=== PATIENT | female | born 1960 | race Caucasian/White ===

== ENCOUNTER 2018-06-23 13:37 | Emergency (ER) | payer BC ==
[~2018-06-23] VITALS: Ht 172.7 cm; Wt 79.0 kg
[2018-06-23 13:38] VITALS: BP 114/65
[2018-06-23] MEDS ORDERED: normal saline 1000ml 1,000 ML IV ONE (14:11)
[2018-06-23] MEDS ORDERED: LORazepam 2 mg/ml vial IV ONE (14:15)
[2018-06-23 14:57] LABS: BASOPHILS % (AUTO) 0.4 % (0-1); EOSINOPHILS # (AUTO) 0.1 X10'3 (0-0.9); EOSINOPHILS % (AUTO) 1.2 % (0-6); HEMATOCRIT 43.4 % (35.0-45.0); HEMOGLOBIN 14.9 g/dl (12.0-16.0); LYMPHOCYTES # (AUTO) 1.1 X10'3 (1.1-4.8); LYMPHOCYTES % (AUTO) 11.5 % (21-51); MEAN CORPUSCULAR HEMOGLOBIN 32.4 PG (27.0-31.0); MEAN CORPUSCULAR HGB CONC 34.2 g/dL (33.0-36.5); MEAN CORPUSCULAR VOLUME 94.7 FL (78-98); MEAN PLATELET VOLUME 7.4 FL (7.4-10.4); MONOCYTES # (AUTO) 1.1 X10'3 (0-0.9); MONOCYTES % (AUTO) 10.8 % (2-12); NEUTROPHILS # (AUTO) 7.5 X10'3 (1.8-7.7); NEUTROPHILS % (AUTO) 76.1 % (42-75); PLATELET COUNT 171 X10'3 (140-440); RED BLOOD COUNT 4.58 X10'6 (4.20-5.60); RED CELL DISTRIBUTION WIDTH 14.6 % (11.5-14.5); WHITE BLOOD COUNT 9.8 X10'3 (4.5-11.0)
[2018-06-23 15:09] LABS: PARTIAL THROMBOPLASTIN TIME 25 SECONDS (22-32)
[2018-06-23 15:12] LABS: ALANINE AMINOTRANSFERASE 125 U/L (12-78); ALBUMIN 3.8 G/DL (3.4-5.0); ALBUMIN/GLOBULIN RATIO 1.2 (1.1-1.5); ALKALINE PHOSPHATASE 73 IU/L (46-116); ANION GAP 6 (8-16); ASPARTATE AMINO TRANSFERASE 80 U/L (10-37); BILIRUBIN,TOTAL 0.4 MG/DL (0.1-1.0); BLOOD UREA NITROGEN 14 MG/DL (7-18); BUN/CREATININE RATIO 16.7 (6.6-38.0); CALCIUM 8.9 MG/DL (8.5-10.1); CHLORIDE 103 MMOL/L (99-107); CREATININE 0.84 MG/DL (0.40-0.90); GLUCOSE 100 MG/DL (70-104); POTASSIUM 3.8 MMOL/L (3.5-5.1); SODIUM 137 MMOL/L (135-145); TOTAL CARBON DIOXIDE 28.5 MMOL/L (24-32); eGFR 70 ML/MIN
[2018-06-23 15:21] LABS: ETHANOL < 0.010 GM/DL (0.0-0.010)
[2018-06-23] MEDS ORDERED: albuterol 2.5 MG/3 ML nebule CONTNEB PRN (15:55)
[2018-06-23] MEDS ORDERED: CHLO25CA10 PO (16:13)
[2018-06-23] MEDS ORDERED: DIAZ5TAB PO (16:13)
== END 2018-06-23 16:49 | disposition home or self-care (01) ==
LOC: ER 13:37
DX: S00.532A Contusion of oral cavity, initial encounter (principal); R56.9 Unspecified convulsions; F10.20 Alcohol dependence, uncomplicated; R51 Headache; R11.0 Nausea; Z90.710 Acquired absence of both cervix and uterus; Z98.890 Other specified postprocedural states; Z79.899 Other long term (current) drug therapy; X58.XXXA Exposure to other specified factors, initial encounter; Y93.89 Activity, other specified; Y92.89 Other specified places as the place of occurrence of the external cause; Y99.8 Other external cause status; Y90.0 Blood alcohol level of less than 20 mg/100 ml
CPT/HCPCS: 36415; 70450; 71045; 80053; 80320; 83735; 84443; 85025; 85610; 85730; 93005; 96374; 99284; J2060; J7030